=== PATIENT | female | born 1990 | race Two or more races ===

== ENCOUNTER → 2025-03-14 | Emergency (ER) | payer OTHER ==
[~2025-03-14] VITALS: Ht 157.5 cm; Wt 68.0 kg
[~2025-03-14] MED LIST: RINGERS SOLUTION,LACTATED 1,000 ML IV STA
[2025-03-14 20:00] LABS: BASO % 0.3 % (0.1-1.2); EOS # 0.04 (0.04-0.54); EOS % 0.4 % (0.7-7.0); LYMPH # 1.79 (1.18-3.74); LYMPH % 18.5 % (19.3-53.1); MEAN PLATELET VOLUME 9.80 fl (9.4-12.4); MONO # 0.52 (0.24-0.82); MONO % 5.4 % (4.7-12.5); NEUT # 7.30 (1.56-6.13); NEUT % 75.2 % (34.0-71.1); RED CELL DISTRIBUTION WIDTH 11.4 % (11.6-14.4)
[2025-03-14 20:38] LABS: BUN CREA RATIO 13.0 (7.0-25.0); CREATININE SERUM 0.56 mg/dL (0.55-1.02); GFR 124.67; GLUCOSE FASTING 101.0 mg/dL (65-100); OSMOLALITY SERUM 278.0 MOSM/KG (275-295)
[2025-03-14 20:40] LABS: HCG QUANTITATIVE 15637.0 mUI/mL (1-3)
== END | disposition home or self-care (01) ==
LOC: ER 18:54
PROVIDERS: General Practice
DX: O20.8 Other hemorrhage in early pregnancy (principal); Z3A.01 Less than 8 weeks gestation of pregnancy